=== PATIENT | female | born 1940 | race Caucasian/White ===

== ENCOUNTER → 2025-05-07 09:10 | Outpatient (REF) | payer OTHER, SELFPAY ==
--- NOTE | 2025-05-08 11:53 | PN.DIAED14 ---
This is to notify you that your patient with diabetes, Dinora Sprague ( 1940), has enrolled in our diabetes self-management classes that are being held at [facility].
These classes will include an introduction to diabetes, diet, medication, exercise and prevention of complications. At the end of our class series, you will receive a report of your patient's participation and progress for your records.
Please contact me at the Diabetes Center, , if there is any particular information regarding your patient that might be helpful to me.
Sincerely,
Sesar SANCHEZ-EVIN, [facility]
--- NOTE | 2025-05-08 12:06 | PN.DIAED04 ---
Education Record
- Education Record
Class Attended: Class 1
DSME Class Series Code: [id number]
Instructor: Registered Nurse (Letitia Yanes RN)
Class Curriculum:
Outpatient Diabetes Education Program:
Class 1 (120 minutes)
Describe the diabetes disease process and treatment options
Diabetes management
Develop personal strategies to promote health and behavior change
Integrate psychosocial adjustment for daily living
Monitor blood glucose and other parameters. Interpret and use the results for self-management decision making
Prevent, detect, and treat acute complications
Class Length (mins): 120
Post-Class 1 Test Score (%): 100
--- NOTE | 2025-05-08 12:21 | PN.DIAED02 ---
Referral
DSME Class Series Code: [id number]
Referred For: Diabetes Self-Management Training, Medical Nutrition Therapy, Self-Blood Glucose Monitoring, Long-Term Complication Instruction, Accute Complication Instruction, Continuous Glucose Monitoring, Medication management, Care Coordination,
Disease Management, Other
PHI Release Authorization Form Signed: Yes
Demographic
(1) Type 2 diabetes mellitus without complications
Status: Chronic Onset Date: ~01/30/25
Qualifiers:
Diabetes mellitus manager intermediate insulin use: without usp use Qualified Code(s): E11.9 - Type 2 diabetes mellitus without complications
Code(s): E11.9 - Type 2 diabetes mellitus without complications
Patient's primary language-: French
Education: High school/GED
Occupation: Retired
- Social
Primary Support Person: Self & spouse
Primary Care Takers: Self & spouse
Living Arrangements: Self & spouse
- Learning Methods
Barriers to Learning: None
Glycemic Control
- Blood Glucose Monitoring Assessment
Blood glucose monitoring at home: Yes
Monitor Brands: OneTouch
Frequency: 2x per day (BID AFTER MEALS: 140-180 MG/DL)
Time: after lunch, after dinner
- Hyperglycemia Assessment
Experiences Hyperglycemia: No
- Hypoglycemia Assessment
Patient experiences hypoglycemia: No
- Blood Glucose Monitoring Results
Source: self-report
- Hemoglobin A1c
Date: 01/30/25
A1C Percentage (%): 7.2
Medical History of Diabetes
Family Diabetes History: Mother, Grandmother
Previous Diabetes Education: No
Previous visit with Dietitian: No
Complications/Comorbidity/Specialist: Heart Disease (ELIQUIS 5 MG BID), Hypertension (ATENOLOL 50 MG QD), Hyperlipidemia (ATORVASTATIN 40 MG QD), Metabolic (METFORMIN 500 MG QD)
Measures
- Anthropometrics
Height: 5 ft 6 in
Actual Weight: 134 lb 9.6 oz
- Blood Pressure / Pulse
Blood pressure: 137/70
Pulse: 57
- Diabetes Management
Medical Management for Diabetes: Complete physical exam (2024), Dental exam (2024), Dilated eye exam, Pneumonia vaccination (2022), Other (COVID 2023)
Self-Care
- Tobacco Usage
Do you now, or have you ever smoked?: Never smoked
- Alcohol & Drugs Usage
Drinks Alcohol: Yes
Amount/day: Social Occasions
- Meals & Dining
Meals & Dining: Patient skips meals: No, Food Intolerance / Allergy: No, Cultural / Religion Dietary Needs: No
Primary Food Java Security Architect: Self
Primary Rodding Machine Tender: Self
Dining Out Frequency: 1-3x per week
- Physical Activity
Physical Limitation: No
Patient participates in physical Activity: Yes
Activity Types: walking
Frequency: 3-5x per week
- Patient-Self Assessment
Diabetes Knowledge: Poor
Feelings About Diabetes: Adaptation
General Health: Good
Importance of Health: Extremely
Stress Level: Medium
Diabetes Interferes With:: Family/social activities, Travel
Barriers to Diabetes Management: Nothing
Depression Survey Score: 0
- Diabetes Identification
Carries Diabetes Identification: No
Diabetes Identification Information Provided: Yes
Care Plan
- Education Needs
Patient Education Needs: Diabetes disease process, Chronic complications, Acute complications, Medication, Monitoring, Physical activity, Psychosocial Adjustment, Nutritional management, Goal setting & problem solving
Recommended Diabetes Training Program based on assessment: Outpatient Diabetes Education Program
- Plan of Care
Plan of Care:
04/26/2025 DSME INITIAL CONSULTATION
Met with participant and her spouse today for registration and initiation of Diabetes Self-management. Pt was recommended by her PCP due to HbA1c of 7.2% on 01/30/2025.
She checks BS BID 2 hours after meals, ranges 140 after breakfast and 140-180 after dinner.
We reviewed complications of diabetes, fasting and 2 hour post prandial glucose goals, signs and symptoms of hyperglycemia, signs and symptoms of hypoglycemia, and hypoglycemia protocol. She currently walks 2 miles every day.We discussed exercise
recommendations of at least 30 minutes per day to help lower glucose levels.
I reviewed and provided diabetes management booklet, insurance billing code and advised she contact her health plan to discuss coverage and cost.
She has phone # for office if additional needs arise prior to class
--- NOTE | 2025-05-08 12:31 | PN.DIAED04 ---
Education Record
- Education Record
Class Attended: Other (INITIAL DSME CONSULTATION)
DSME Class Series Code: [id number]
Instructor: Registered Nurse (Letitia Yanes RN)
Pre-Program Knowledge: No knowledge
Pre-Test Score (%): 35
Goals
- Goal 1
Being Active: Exercise 30 minutes-5 times per week
Goals To Be Evaluated: Exercise 30 mins-5x/week
- Goal 2
Healthy Eating: Make better food choices
Goals To Be Evaluated: Make better food choices
- Goal 3
Monitoring: Follow monitoring schedule
Goals To Be Evaluated: Follow monitoring times
== END ==
LOC: DES 09:10
PROVIDERS: ATTENDING PHYSICIAN Family Medicine
DX: E11.9 Type 2 diabetes mellitus without complications (principal)
CPT/HCPCS: 99078

== ENCOUNTER → 2025-05-14 08:06 | Outpatient (REF) | payer OTHER, SELFPAY ==
--- NOTE | 2025-05-15 09:16 | PN.DIAED04 ---
Education Record
- Education Record
Class Attended: Class 2
DSME Class Series Code: [id number]
Instructor: Registered Dietitian (Yolanda Parsons, RD, LDN, CDE)
Class Curriculum:
Outpatient Diabetes Education Program:
Class 2 (120 minutes)
Incorporate nutritional management into lifestyle
Understanding nutritional value
Understanding carbohydrate counting
Class Length (mins): 120
== END ==
LOC: DES 08:06
PROVIDERS: ATTENDING PHYSICIAN Family Medicine
DX: E11.9 Type 2 diabetes mellitus without complications (principal)
CPT/HCPCS: 99078

== ENCOUNTER → 2025-05-21 14:48 | Outpatient (REF) | payer OTHER, SELFPAY ==
--- NOTE | 2025-05-22 13:52 | PN.DIAED04 ---
Education Record
- Education Record
Class Attended: Class 3
DSME Class Series Code: [id number]
Instructor: Registered Dietitian (Yolanda Parsons, RD, LDN, CDE)
Class Curriculum:
Outpatient Diabetes Education Program:
Class 3 (120 minutes)
Incorporate nutritional management into lifestyle
Class Length (mins): 120
Post-Class 2 & 3 Test Score (%): 100
== END ==
LOC: DES 14:48
PROVIDERS: ATTENDING PHYSICIAN Family Medicine
DX: E11.9 Type 2 diabetes mellitus without complications (principal)
CPT/HCPCS: 99078

== ENCOUNTER → 2025-05-28 09:05 | Outpatient (REF) | payer OTHER, SELFPAY ==
--- NOTE | 2025-05-29 09:21 | PN.DIAED04 ---
Education Record
- Education Record
Class Attended: Class 4
DSME Class Series Code: [id number]
Instructor: Registered Nurse (Letitia Yanes RN)
Class Curriculum:
Outpatient Diabetes Education Program:
Class 4 (120 minutes)
Develop personal strategies to promote health and behavior change
Incorporate physical activity into lifestyle
Utilize medications safety for maximum therapeutic effectiveness
Understand different medication/insulin mechanism of action
Preparing for travel
Class Length (mins): 120
Post-Class 4 Test Score (%): 100
== END ==
LOC: DES 09:05
PROVIDERS: ATTENDING PHYSICIAN Family Medicine
DX: E11.9 Type 2 diabetes mellitus without complications (principal)
CPT/HCPCS: 99078

== ENCOUNTER → 2025-06-04 08:44 | Outpatient (REF) | payer OTHER, SELFPAY ==
--- NOTE | 2025-06-05 12:07 | PN.DIAED04 ---
Education Record
- Education Record
Class Attended: Class 5
DSME Class Series Code: [id number]
Instructor: Registered Nurse (Letitia Yanes RN)
Class Curriculum:
Outpatient Diabetes Education Program:
Class 5 (120 minutes)
Prevent, detect, and treat acute complications
Prevent, detect, and treat chronic complications through risk reduction
Develop personal strategies to address psychosocial issues and concerns
Development of diabetes self-management support plan
Letter to physician with DSMS plan attached sent
Class Length (mins): 120
Post-Program Knowledge: Demonstrates competency
Post-Test Score (%): 80
Post-Program Assessment
- Post-Program Assessment
Actual Weight: 131 lb 12.8 oz
Blood pressure: 117/70
Post-Program Depression Survey Score: 0
Reviewing Previous Goals?: Yes
Pre-Program Depression Survey Score: 0
- Goals 1 Evaluation
Goals To Be Evaluated: Exercise 30 mins-5x/week
- Goals 2 Evaluation
Goals To Be Evaluated: Make better food choices
- Goals 3 Evaluation
Goals To Be Evaluated: Follow monitoring times
--- NOTE | 2025-06-05 12:10 | PN.DIAED16 ---
This is to notify you that your patient with diabetes, Dinora Sprague ( 1940), has attended the entire series of Diabetes Self-Management Education Classes.
Class 1 (120 minutes): Diabetes Overview - monitoring, stress/psychosocial adjustment, support, goal setting
Class 2 (120 minutes): Meal Planning - serving sizes, menu plans
Class 3 (120 minutes): Introduction to Carbohydrate Counting, Analyzing Food Labels
Class 4 (120 minutes): Medication, Exercise and Activity
Class 5 (120 minutes): Sick Day Management, Strategies to Reduce Complications, Problem Solving, Resources
The following behavioral goals were identified:
Goal #1: Exercise 30 mins-5x/week
Goal #2: Make better food choices
Goal #3: Follow monitoring times
A follow-up call will be made within three to six months to evaluate attainment of these goals and to check post-program Hemoglobin A1c and overall progress. All class participants are encouraged to contact me if I can be any further assistance in
learning how to manage their diabetes.
Sincerely,
Sesar SANCHEZ-, [facility]
== END ==
LOC: DES 08:44
PROVIDERS: ATTENDING PHYSICIAN Family Medicine
DX: E11.9 Type 2 diabetes mellitus without complications (principal)
CPT/HCPCS: 99078